=== PATIENT | male | born 1980 | race Caucasian/White ===

== ENCOUNTER 2023-01-28 08:38 | Outpatient (CLI) | payer BC, SELFPAY ==
[2023-01-28 15:07] LABS: Basophils Absolute Auto 0.1 K/mm3 (0.0-0.1); Basophils Percent Auto 0.8 % (0.2-1.2); Eosinophils Absolute Auto 0.3 K/mm3 (0-0.3); Eosinophils Percent Auto 5.5 % (0-4.4); Hematocrit 45.5 % (42.0-52.0); Hemoglobin 15.3 g/dL (14.0-18.0); Immature Granulocyte Absolute 0.02 K/mm3 (0.00-0.031); Immature Granulocyte Percent A 0.3 % (0-0.5); Lymphocytes Absolute Auto 2.47 K/mm3 (0.9-3.2); Lymphocytes Percent Auto 39.7 % (18.3-44.2); Mean Corpuscular HGB Conc 33.6 g/dl (32-36); Mean Corpuscular Hemoglobin 30.3 pg (26-34); Mean Corpuscular Volume 90.1 fl (80-100); Mean Platelet Volume 11.2 fl (7.4-10.4); Monocytes Absolute Auto 0.5 K/mm3 (0.1-0.6); Monocytes Percent Auto 8.2 % (2.6-8.5); Neutrophils Absolute Auto 2.8 K/mm3 (1.3-6.7); Neutrophils Percent Auto 45.5 % (45.5-73.1); Platelet Count Result 178 k/mm3 (150-375); Red Blood Count 5.05 M/mm3 (4.6-6.20); Red Cell Distribution Width 12.7 % (11.5-14.5); White Blood Count 6.2 K/mm3 (4.5-10.0)
[2023-01-28 16:31] LABS: Alanine Aminotransferase 69 U/L (6-50); Bilirubin,Total 0.7 mg/dL (0.2-1.3); Blood Urea Nitrogen 12 mg/dL (9-20); Glucose 105 mg/dL (65-110); Potassium 4.4 mmol/L (3.4-5.0); Sodium 140 mmol/L (137-145); Triglycerides 195 mg/dL (<150)
[2023-01-28 17:23] LABS: Albumin Level 4.7 g/dL (3.5-5.1); Alkaline Phosphatase 61 U/L (38-126); Anion Gap 6 mmol/L (8-16); Aspartate Amino Transferase 66 U/L (17-59); Calcium 9.3 mg/dL (8.4-10.2); Carbon Dioxide 28 mmol/L (22-30); Chloride 106 mmol/L (98-107); Cholesterol 163 mg/dL (0-200); Estimated Glomerular Filt Rate > 60; HDL Direct 27 mg/dL
[2023-01-28 17:33] LABS: LDL Cholesterol Direct 92 mg/dL
== END 2023-01-28 08:39 | disposition home or self-care (01) ==
LOC: ANHGOSHLAB 08:40
PROVIDERS: PCP Family Medicine; Visit Provider Family Medicine
DX: Z00.00 Encounter for general adult medical examination without abnormal findings (principal); E53.8 Deficiency of other specified B group vitamins; E55.9 Vitamin D deficiency, unspecified; Z13.220 Encounter for screening for lipoid disorders; F32.A Depression, unspecified; G47.33 Obstructive sleep apnea (adult) (pediatric); Z79.899 Other long term (current) drug therapy
CPT/HCPCS: 36415; 80053; 80061; 82306; 82607; 84443; 85025

== ENCOUNTER → 2023-04-08 07:56 | Outpatient (CLI) | payer BC, SELFPAY ==
--- NOTE | ~2023-04-08 | MR_ITS ---
EXAMINATION: MR foot RT wo con DATE: 04/08/2023 08:57 INDICATION: Right foot pain TECHNIQUE: Magnetic resonance imaging (MRI) of the right fore/mid foot was performed without intraven ous contrast. Sequences included sagittal T1-weighted FSE, sagittal fluid sensitive FSE STIR, coronal PD-weighted FS FSE, coronal T1-weighted FSE, axial PD-weighted FS FSE, and axial PD-weighted FSE. COMPARISON: None FINDINGS: Bone alignment is normal. There is marrow edema at the proximal third of the second metatarsal with i ncreased cortical signal at the lateral side of the metaphyseal region without an evident low signal intensity fracture line consistent with a grade 4A stress injury. Marrow signal is otherwise normal t hroughout. Joint spaces are normal with no joint effusions. Lisfranc ligament complex as well as the collateral ligament complex at the metatarsophalangeal and interphalangeal joints are normal. Visuali zed portions of the flexor and extensor tendons are normal. There is some edema in the intrinsic musc ulature immediately adjacent to the base of the second metatarsal with overlying subcutaneous edema. IMPRESSION: 1. Increased cortical and medullary signal at the base of the second metatarsal consistent with a gra de 4A stress injury. Reviewed, dictated and finalized at location B. IMPRESSION: 1. Increased cortical and medullary signal at the base of the second metatarsal consistent with a grade 4A stress injury.
== END ==
DX: M79.671 Pain in right foot (principal); R93.6 Abnormal findings on diagnostic imaging of limbs
CPT/HCPCS: 73718

== ENCOUNTER 2024-04-01 07:22 | Outpatient (CLI) | payer BC, SELFPAY ==
--- NOTE | ~2024-04-01 | DEXA_ITS ---
Bone Density Report Name: MARVEL MORSE Age: 43 Sex: Male Ethnicity: White Date of : 1980 Indication: prior fracture; Referring Provider: UNKNOWN, UNKNOWN Study: Bone densitometry was performed. Exam Date: April 01, 2024 Accession number: [id number] Bone Density: Region BMD T-score Z-score Classification AP Spine(L1-L4) 1.227 1.2 1.4 Normal Femoral Neck (Left) 1.027 0.7 1.3 Normal Total Hip (Left) 1.209 1.2 1.4 Normal Femoral Neck (Right) 0.918 -0.1 0.5 Normal Total Hip (Right) 1.182 1.0 1.2 Normal Total Hip Mean 1.196 1.1 1.3 Normal World Health Organization criteria for BMD impression classify patients as: Normal (T-score at or above -1.0), Osteopenia (T-score between -1.0 and -2.5), or Osteoporosis (T-score at or below -2.5). 10-year Fracture Risk: FRAX not reported because: Man under age 50 All T-scores for Spine Total, Hip Total, Femoral Neck at or above -1.0 Clinical Information Provided by Patient: Has had a low trauma fracture Patient maximum height was 75 No regular weight bearing exercise Drinks caffeinated beverages Impression: The patient's bone mass is within expected range for age, gender and ethnicity. The patient has risk factors, including: previous fracture. Discussion: BONE DENSITY IS WITHIN EXPECTED LIMITS FOR AGE, SEX AND RACE. Bone density is within expected limits for age, sex and race at all sites measured. The patient should follow a healthful lifestyle (good nutrition with adequate calcium and vitamin D, and appropriate weight-bearing exercise). Follow-Up: Consider repeating this study in 5 years or sooner if there is some new clinical indication. Reported by: IBAN on 04/01/2024 8:03:00 AM. Reviewed, dictated and finalized at location AMichelle [facility]UND[facility]
== END 2024-04-01 07:23 | disposition home or self-care (01) ==
DX: M80.072A Age-related osteoporosis with current pathological fracture, left ankle and foot, initial encounter for fracture (principal); M80.071A Age-related osteoporosis with current pathological fracture, right ankle and foot, initial encounter for fracture
CPT/HCPCS: 77080